=== PATIENT | female | born 1955 | race Caucasian/White ===

== ENCOUNTER 2019-09-21 07:55 | Day surgery (SDC) | payer OTHER ==
[~2019-09-21] VITALS: Ht 165.1 cm; Wt 81.7 kg
[~2019-09-21 07:55] MED LIST: LIPITOR10 MG PO; OMEPRAZOLE20 MG PO; SYNTHROID75 MCG PO
--- NOTE | 2019-09-21 08:52 | NUR ---
IMAGING CALLED AND VERBALIZED PATIENT READY FOR TRANSPORT. PATIENT RESTING BACK IN BED, WARM BLANKET PROVIDED. CALL LIGHT WITHIN REACH, NO OTHER NEEDS AT THIS TIME.
--- NOTE | 2019-09-21 08:53 | NUR ---
ULTRA SOUND NOT AVAILABLE TILL 1000, DR. VOGT AND ELBA VANG NOTIFIED.
--- NOTE | 2019-09-21 09:56 | NUR ---
PATIENT LEFT TO IMAGING IN WHEELCHAIR. PROVIDED WARM BLANKETS.
--- NOTE | 2019-09-21 13:53 | NUR ---
09/21/19 1353 Sheets,Minda 1347 PT ARRIVED TO PACU ON 6L VIA MASK, RESP EVEN AND UNLABORED. VSS.
[2019-09-21] MEDS ORDERED: IBUPROFEN600 MG PO (14:31)
[2019-09-21] MEDS ORDERED: OXYCODON-ACETA1 EAC2 PO (14:31)
[2019-09-21] MEDS ORDERED: TYLENOL EXTRA500 MG PO (14:32)
--- NOTE | 2019-09-21 14:45 | NUR ---
PATIENT BACK TO ROOM FROM RECOVERY, BEDSIDE REPORT FROM GOMEZ VANG. PATIENT RATING PAIN 8-10/10 STATES " THIS HURTS SO BAD" APPEARS TO BE GRIMACING. DISCUSSED PAIN CONTROL WITH NURSE. MEDICATED PER PACU ORDER FOR BREAKTHRU PAIN WITH PACU NURSE AT BEDSIDE. PATIENT TOLERATED WATER AND CRACKERS. ADMINISTER PO MEDICATION. PATIENT NOW CONVERSING WITH FAMILY, NO NEW DRAINAGE TO DRESSING.
--- NOTE | 2019-09-21 15:01 | NUR ---
PATIENT RATING PAIN 10/10 FROM PACU, DISCUSSED WITH NURSE OPTIONS FOR BREAKTHRU PAIN. PACU NURSE GOMEZ MEDICATED. PATIENT TOLERATING WATER AND CRACKERS. DRESSING SMALL AMOUNT OF SHADOWING.
--- NOTE | 2019-09-21 15:30 | NUR ---
PATIENT COMPLAINING OF HEARTBURN, VERBAL ORDER FROM DR. VOGT TO [facility]. PATIENT STATES " MY PAIN IS IMPROVIING." PROVIDED MORE ICE WATER. PROVIDED WARM BLANKETS. CALL LIGHT WITHIN REACH. FAMILY AT BEDSIDE.
--- NOTE | 2019-09-21 16:30 | NUR ---
PATIENT UP TO BATHROOM, PAIN WELL CONTROLLED. INNA BREAST SUPPORT PLACED ON PATINET. DRESSING INTACT, NO NEW DRAINAGE. AMBULATED TO BATHROOM STEADY ON FEET. PATIENT VOIDED 600 ML OF URINE. PATIENT STATES " I WOULD LIKE TO GO HOME". PROVIDED DISCHARGE EDUCATION.
--- NOTE | 2019-09-21 17:10 | NUR ---
PROVIDED PATIENT WITH WC RIDE TO FRONT. TRANSFERED WELL INTO CARE. DAUGHTER DRIVING PATIENT HOME.
--- NOTE | 2019-09-24 08:26 | OR ---
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 POSTOPERATIVE DIAGNOSES: 1. 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 2. Right axillary lymph node negative for metastatic disease (frozen pathology). PROCEDURES: 1. Injection of methylene blue dye for sentinel lymph node identification, right breast. 2. Right axillary sentinel lymph node biopsy. 3. Right partial mastectomy (right upper outer quadrant quadrantectomy). 4. Oncoplastic closure of wound defect including pedicle advancement and excision of redundant skin. PRINTING AGENT: Nurse. ANESTHESIA: General endotracheal; Mariajose Ku CRNA and Mariajose Valle CRNA. INDICATION: This 63-year-old white woman is a patient of Hannah Jacobson PA-C of [place], [place]. She underwent a mammogram. She is found to have an upper outer quadrant abnormality, for which image-guided biopsy was performed confirming infiltrating ductal carcinoma and probable associated ductal carcinoma in situ. She was referred for further evaluation and care and was noted to have ecchymosis and possible hematoma in the site of biopsy and therefore at the time of my evaluation, it was quite unclear whether she had a palpable lesion to begin with as her breast examination initially was not documented or of possible even done. In the meantime, she was identified to have at least two family members (aunts) with breast cancer and therefore BRCA testing was performed, which was negative. 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 I have reviewed in detail her options of management including mastectomy or breast conservation therapy regarding this breast cancer. As regard to the idea of bilateral mastectomy, cancer risk and the risk is not nearly as significantly high as BRCA positivity and she is not compelled nor encouraged by me at least to undergo bilateral mastectomy. She does opt for breast conservation therapy to include resection with negative margins, sentinel lymph node biopsy, possible axillary dissection, and subsequent radiation therapy and other indicated procedures depending on her pathologic findings. She and her family and other family members understand the risks of bleeding, infection, cosmetic deformity, need for additional treatment, possibility of positive margins requiring additional excision and other unforeseen complications. Understanding this, they wished to proceed. FINDINGS: The uptake of radionuclide to axilla showed a dominant lymph node. Methylene blue injection showed only faint uptake. There is only one dominant sentinel lymph node that was excised and found on frozen pathology to be negative for malignancy. Interrogation of the axilla clinically visually and with a gamma probe showed no other sentinel lymph node. The index lesion was definitely palpable and needle localization was not required as noted in the radiology suite today. It was larger than I had expected and in the upper outer quadrant. An incision was made directly over that lesion and a wide resection was undertaken, which extended down to the pectoralis muscle. A clinically negative margin was maintained throughout the size of the excision. Ultimately, it was closer to a quadrantectomy than actual lumpectomy proper. On that basis, oncoplastic closure techniques were used to remove the central breast pedicle laterally allowing for reconstruction of the defect without significant adverse cosmetic result. Redundant skin was excised to further accommodate a clinically improved cosmetic outcome. Frozen pathology of the sentinel lymph node showed it to be negative. DESCRIPTION OF PROCEDURE: The patient was brought to the operating room, given a general endotracheal anesthetic. Preoperative antibiotic clindamycin was given based on her allergy profile. Sequential compression device stockings used and heparin subcutaneously administered. The right breast and axilla were prepared with chlorhexidine solution and draped sterilely after injection of 1 mL of methylene blue dye in the subepithelial space in the upper outer aspect of the periareolar margin. Electronically Signed By: MARIAJOSE VOGT MD 09/24/19 0826 PATIENT NAME: AMANUEL GLEZ OPERATIVE REPORT DATE OF : 57 REPORT #: [id number] PHYSICIAN: MARIAJOSE VOGT MD PCP: OTHER PCP REPORT IS CONFIDENTIAL AND NOT TO BE RELEASED WITHOUT AUTHORIZATION [address] [address] Signed Once sterilely draped, the right axilla was interrogated with a C-Trak gamma probe and the area of maximal uptake was identified. A transverse incision was made, which was remained small and dissection carried through the dermis and subcutaneous space and ultimately to the axillary fat with blunt and electrocautery dissection. Using the gamma probe as a guide, ultimately an area consistent with fatty tissue surrounding sentinel lymph node was identified. This was meticulously dissected free and a few clips were applied to lymphatic and vascular pedicles as necessary. Tissue was excised and found to have marked uptake of radionuclide and marginal uptake of the dye itself. It was marked with a suture and passed for pathology, subsequently found to be negative for malignancy. Additional evaluation of the axilla showed absolutely no other palpable suspicious lymph node. No radionuclide activity and no methylene blue dye uptake to any other lymph node tissue. On that basis, the wound was packed with gauze and attention turned to the primary lesion. Consideration was made for a periareolar incision, but given the location of the mass in the upper outer quadrant, incision directly over it was deemed more advisable. This was accomplished with a #15 blade and dissection carried through the dermis sharply and electrocautery to elevate flaps medially and laterally. The palpable abnormality was quite firm and thick and quite a bit larger than I expected initially. Wide resection was undertaken medially essentially to the areolar margin where blue dye was encountered superiorly, inferiorly, laterally, most widely and deep. Deep excision was taken down to the pectoralis muscle. Palpation and mind fullness of the location of the dominant lesion were maintained throughout the excision. Once completely excised, the specimen was oriented with sutures for the pathologist's purposes. Palpation within the space showed dissection had gone to below the areolar margin and medially nearly to the midline. Lateral tissue was palpably normal. A sizable defect was enough that an oncoplastic closure technique would be necessary. On that basis, the breast pedicle in the central portion of the breast was freed from the underlying pectoralis fascia and shifted laterally. Redundant lateral breast tissue was easily elevated and rotated medially. The parenchyma was reapproximated with interrupted 2-0 Vicryl suture taking care to reconstruct the contour of the breast as optimally as possible. Redundant skin was excised in a half-farfan configuration laterally. Dimples of retention sutures were freed with sharp dissection allowing for much improved filling of the cosmetic defect laterally. Deep dermal layer was reapproximated with interrupted 2-0 Vicryl additionally and the skin closed with running subcuticular 3-0 Vicryl. By this point, the frozen pathology report of the sentinel lymph node was noted to be negative. Inspection of the right axillary wound showed no sign of bleeding or other problems. This wound was closed in layers of interrupted 2-0 Vicryl in deep layer and running subcuticular 3-0 Vicryl for the skin. Electronically Signed By: MARIAJOSE VOGT MD 09/24/19 0826 PATIENT NAME: AMANUEL GLEZ OPERATIVE REPORT DATE OF : 57 REPORT #: [id number] PHYSICIAN: MARIAJOSE VOGT MD PCP: OTHER PCP REPORT IS CONFIDENTIAL AND NOT TO BE RELEASED WITHOUT AUTHORIZATION [facility] [address] [place] [id number] Signed A skin lesion was noted in the medial aspect of the right breast, which was large and elliptical excision undertaken. It was a papillary red hemangioma like lesion of uncertain biologic behavior. Excision size was 2 cm. The wound was closed with a running subcuticular of 3-0 Vicryl. Steri-Strips were applied to all wounds. Silver sponge dressings were applied to each incision site as well. The patient was ultimately extubated and transferred to recovery room in good condition having suffered no complication. Aggregate blood loss would be considered 50 mL or less. Mariajose Vogt MD JM/MODL /[id number] cc: DANITZA Richards MD Copies: RUTH CARNEY MD ~ Electronically Signed By: MARIAJOSE VOGT MD 09/24/19 0826 PATIENT NAME: AMANUEL GLEZ OPERATIVE REPORT DATE OF : 57 REPORT #: [id number] PHYSICIAN: MARIAJOSE VOGT MD PCP: OTHER PCP REPORT IS CONFIDENTIAL AND NOT TO BE RELEASED WITHOUT AUTHORIZATION
--- NOTE | 2019-09-24 08:26 | OR ---
[facility] [address] [place], [place] [address] Signed DATE OF OPERATION: 09/21/2019 SURGEON: Mariajose Vogt MD PREOPERATIVE DIAGNOSES: 1. Upper outer quadrant infiltrating ductal breast carcinoma. 2. 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 POSTOPERATIVE DIAGNOSES: 1. Upper outer quadrant infiltrating ductal breast carcinoma. 2. 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 3. [place] lymph node negative on frozen pathology. PROCEDURES: 1. Injection of methylene blue for sentinel lymph node identification. 2. Right axillary deep sentinel lymph node biopsy. 3. Right partial mastectomy (upper outer quadrant quadrantectomy essentially). 4. Oncoplastic closure of wound defect including tissue pedicle mobilization, multilayered pedicle closure, and redundant skin excision. ANESTHESIA: General endotracheal. 1. Mariajose Ku CRNA. 2. Mariajose Valle CRNA. INDICATION: This 63-year-old white woman is a patient of LISA Richards of [place], [place]. She is found to have an abnormal mammogram in the right upper aspect, underwent core biopsy under image guidance by Dr. Dillon. She did have a fair amount of ecchymosis and possibly hematoma upon visiting in and was uncertain if this was a palpable lesion or not. The pathology report did confirm infiltrating ductal carcinoma with some component of ductal carcinoma in situ. She had no symptoms of bleeding, nipple discharge, or breast pain. She does have family history of breast cancer in at least one and possibly two paternal aunts and a sister and cousin both of a cancer of uncertain type. She was noted to have had axillary lymph nodes [place] [address] Demarcus Lezama for considered benign and on the left side. She did undergo BRCA testing, which was negative for BRCA1 and BRCA2. However, incidental testing of genetic abnormality of JANINA was heterozygous positive. Electronically Signed By: MARIAJOSE VOGT MD 09/24/19 0826 PATIENT NAME: AMANUEL GLEZ OPERATIVE REPORT DATE OF : 57 REPORT #: [id number] PHYSICIAN: MARIJAOSE VOGT MD PCP: OTHER PCP REPORT IS CONFIDENTIAL AND NOT TO BE RELEASED WITHOUT AUTHORIZATION [address] [address] Signed I have conferred with the patient in detail DICTATION ENDS HERE MD JANIE Zhang/MODL /[id number] Copies: ~ Electronically Signed By: MARIAJOSE VOGT MD 09/24/19 0826 PATIENT NAME: AMANUEL GLEZ OPERATIVE REPORT DATE OF : 57 REPORT #: [id number] PHYSICIAN: MARIAJOSE VOGT MD PCP: OTHER PCP REPORT IS CONFIDENTIAL AND NOT TO BE RELEASED WITHOUT AUTHORIZATION
--- NOTE | 2019-10-02 17:04 | PATH ---
[facility] [address] [facility] [place], [place] [address] Signed SPECIMEN(S): A RIGHT BREAST SPECIMEN(S): B RIGHT BREAST SPECIMEN(S): C ADDITIONAL ONCOPLASTIC CLOSURE SPECIMEN(S): D RIGHT BREAST, MEDIAL 2 CM SPECIMEN SOURCE: A. RIGHT BREAST B. RIGHT BREAST C. ADDITIONAL ONCOPLASTIC CLOSURE D. RIGHT BREAST, MEDIAL 2 CM CLINICAL HISTORY: Infiltrating duct carcinoma of breast. FROZEN SECTION DIAGNOSIS: A. Right sentinel lymph node #1: - No evidence of malignancy in inbound sales representative section frozen. Riccardo Boateng M.D. 09-21-2019. 12:48 p.m. Frozen section diagnoses called to Dr. Luciano at 12:48 PM. FINAL PATHOLOGIC DIAGNOSIS: A. Right axillary sentinel lymph node: - Negative for metastatic malignancy on HE and immunostained sections. B. Right breast, excision: - Infiltrating ductal carcinoma with the following features: - Specimen size: 7.9 x 8.6 x 3.7 cm. - Specimen integrity: Intact. - Site: Right upper out quadrant (10 o'clock). - Tumor size: 2.6 x 2.2 x 2.0 cm. - Histologic type: Invasive mammary carcinoma. - Histologic grade ([place] histologic score): - Tubule formation: 3 of 3. - Nuclear pleomorphism score: 2 of 3. - Mitotic rate: 1 of 3. - Total score: 6 of 9 = grade 2 of 3. - Associated in situ component: Present, low grade, not prominent, margin free. - Margins: Free of neoplasm. - Closest margin: 0.3 cm from anterior margin and 0.1 cm from posterior margin. - Lymphovascular invasion: Absent PATIENT NAME: AMANUEL GLEZ PATHOLOGY DATE OF : 57 REPORT #: [id number] PHYSICIAN: NATA PATHOLOGY PCP: OTHER PCP REPORT IS CONFIDENTIAL AND NOT TO BE RELEASED WITHOUT AUTHORIZATION [facility] [address] [place], [place] [address] Signed - Treatment effect: No known pre-surgical treatment. - AJCC: pT2 PN0 (sn) - Additional pathologic findings: - Focally dense lymphocytic infiltration around tumor cells. - Uninvolved breast with mild fibrocystic change with the feature of fibrosis and cyst formation. C. Additional skin from oncoplastic closure: - No microscopic pathologic diagnosis. D. Skin, right breast, biopsy: - Capillary hemangioma. COMMENT: B. The patient had a previous biopsy of the right breast received at [facility] 08/14/2019 with a diagnosis of invasive ductal carcinoma ([id number]). Ancillary studies were performed at that time with results as follows: Estrogen receptor by immunohistochemistry 100% positive with strong average intensity. Progesterone receptor by immunohistochemistry 100% positive with strong average intensity. Ki-67 proliferation Index: 25%. HER2 by immunohistochemistry: Negative. As part of [facility] quality control manager program this case has been reviewed by another member of our pathology staff. NENA:MALENA:cml:C1NR MICROSCOPIC EXAMINATION: A. Sections of right axillary sentinel lymph node are negative for metastatic malignancy on HE stained sections. Per protocol immunostain for CKAE1/AE3 is obtained along with an appropriately positive control on material from blocks A1 and A2 and is also negative for metastatic malignancy. B. Immunostains for synaptophysin and chromogranin are obtained along with appropriately positive controls. Immunostain for CK AE1/AE3 is obtained along with an appropriately positive control on A1 and A2, and is negative for the presence of metastatic carcinoma. Immunostain for CD34 is obtained along with an appropriately positive control on block B3 and is negative for the presence of lymphovascular invasion. Immunostains for synaptophysin and chromogranin are obtained along with appropriately positive controls on block B1. Both are negative. PATIENT NAME: AMANUEL GLEZ PATHOLOGY DATE OF : 57 REPORT #: [id number] PHYSICIAN: NATA URIBE PCP: OTHER PCP REPORT IS CONFIDENTIAL AND NOT TO BE RELEASED WITHOUT AUTHORIZATION [facility] [address] [place], [place] [address] Signed GROSS DESCRIPTION: Four specimens are received in four containers, labeled "." A. The specimen, labeled ", sentinel lymph node #1," is received fresh for frozen section diagnosis and consists of a 3.0 x 2.0 x 1.5 cm portion of yellow-gibbs adipose tissue with a sutured 1.2 x 0.7 x 0.6 cm lymph node. The lymph node is trisected and a portion is submitted for frozen section and resubmitted as received in cassette (A1). The remainder of the lymph node is submitted in cassette (A2). Only adipose tissue remains within the container. B. The specimen, labeled "JH," and designated on the requisition "right breast," is received in formalin and consists of a 102 gram oriented portion of yellow-gibbs fibroadipose tissue that is 7.9 x 8.6 x 3.7 cm. A short suture identifies the superior margin, a long suture identifies the lateral margin, and a double suture identifies the deep/posterior margin. The specimen is inked as follows: superior - blue; inferior - green; medial - red; lateral - orange; anterior - yellow; and posterior - black. The specimen is serially sectioned from medial to lateral into 13 slices, revealing a 2.6 x 2.2 x 2.0 cm white firm, ill-defined mass, present in slices 4-10. The mass is 0.3 cm from the anterior soft tissue margin, 0.1 cm from the posterior soft tissue margin, 2.7 cm from the superior soft tissue margin, 1.8 cm from the inferior soft tissue margin, 2.3 cm from the medial soft tissue margin, and 1.6 cm from the lateral soft tissue margin. Approximately 80% of the remaining specimen is a yellow-gibbs greasy adipose tissue and 20% is a white-gibbs rubbery fibrous tissue. Venue Attendant sections are submitted in seven cassettes. Cassette summary: (B1) mass to anterior soft tissue resection margin, perpendicular (B2) mass to posterior soft tissue margin, perpendicular (B3) mass to adjacent fibroadipose tissue (B4) inferior soft tissue margin, perpendicular (B5) superior soft tissue margin, perpendicular (B6) medial soft tissue margin, perpendicular (B7) lateral soft tissue margin, perpendicular. Cold ischemia time: Insufficient data to calculate. Approximate Formalin time: 48-72 hours. C. The specimen, labeled "JH," and designated on the requisition "additional skin from oncoplastic closure," is received in formalin and consists of a 6.6 x 1.4 x 0.9 cm, unoriented ellipse of skin PATIENT NAME: AMANUEL GLEZ PATHOLOGY DATE OF : 57 REPORT #: [id number] PHYSICIAN: NATA URIBE PCP: OTHER PCP REPORT IS CONFIDENTIAL AND NOT TO BE RELEASED WITHOUT AUTHORIZATION [facility] [address] [place], [place] [address] Signed with underlying fibroadipose tissue. The skin surface is pale pink with a slight blue dye discoloration. The specimen is inked, serially sectioned, and entirely submitted in (C1-C4). D. The specimen, labeled "JH," and designated on the requisition "right breast," is received in formalin and consists of a 1.4 x 0.7 x 0.2 cm, unoriented portion of skin. The skin surface is pale pink and smooth with an ill-defined brown papule that is 0.7 x 0.7 x 0.2 cm. The specimen is inked, sectioned and entirely submitted in cassette (D1). FB (under the direct supervision of a pathologist) The Gross Description was prepared using a voice recognition system. The report was reviewed for accuracy; however, sound-alike word errors, addition and/or deletions may occur. If there is any question about this report, please contact Client Services. ADDITIONAL NOTES: Immunohistochemical and/or in situ hybridization studies were performed on this case with the appropriate positive controls that react as expected. This test was developed and its performance characteristics determined by [facility]. It has not been cleared or approved by the U.S. Food and Drug Administration. The FDA has determined that such clearance or approval is not necessary. This test is used for clinical purposes. It should not be regarded as investigational or for research. [facility] is certified under the Clinical Laboratory Improvement Amendments of 1988 (CLIA) as qualified to perform high complexity clinical laboratory testing. PERFORMING LABORATORY: The frozen section was performed by [facility], [facility], [address] [address] (CLIA# [id number]). The technical component was performed by [facility], [address] [place] [address] [place] [address] (Poker Dealer: Paloma Domínguez MD; CLIA# [id number]). Diagnostician: Torrey Malcolm MD Pathologist Electronically Signed 10/02/2019 Copies: PATIENT NAME: AMANUEL GLEZ PATHOLOGY DATE OF : 57 REPORT #: [id number] PHYSICIAN: NATA PATHOLOGY PCP: OTHER PCP REPORT IS CONFIDENTIAL AND NOT TO BE RELEASED WITHOUT AUTHORIZATION [facility] [address] [place], [place] [address] Signed ~ PATIENT NAME: AMANUEL GLEZ PATHOLOGY DATE OF : 57 REPORT #: [id number] PHYSICIAN: ROSA ELENASonatype PATHOLOGY PCP: OTHER PCP REPORT IS CONFIDENTIAL AND NOT TO BE RELEASED WITHOUT AUTHORIZATION
== END 2019-09-21 17:10 | disposition home or self-care (01) ==
LOC: DS 07:55
PROVIDERS: Surgery
PROC: 0HBT0ZZ Excision of Right Breast, Open Approach (ICD-10-PCS; principal; 2019-09-21 12:00)
PROC: 07B50ZX Excision of Right Axillary Lymphatic, Open Approach, Diagnostic (ICD-10-PCS; 2019-09-21 12:00)
DX: C50.411 Malignant neoplasm of upper-outer quadrant of right female breast (principal); E78.5 Hyperlipidemia, unspecified; E03.9 Hypothyroidism, unspecified; K21.0 Gastro-esophageal reflux disease with esophagitis; Z80.3 Family history of malignant neoplasm of breast; Z88.0 Allergy status to penicillin; Z88.2 Allergy status to sulfonamides; Z79.899 Other long term (current) drug therapy
CPT/HCPCS: 00404; 76098; 76604; 76642; J0131; J1100; J1170; J1644; J1885; J2001; J2250; J2405; J2704; J3010; J7121; Q9968

== ENCOUNTER 2020-06-13 08:33 | Day surgery (SDC) | payer OTHER ==
[~2020-06-13] VITALS: Ht 165.1 cm; Wt 81.8 kg
[~2020-06-13 08:33] MED LIST changes: +IBUPROFEN600 MG PO; +OXYCODON-ACETA1 EAC2 PO; +TYLENOL EXTRA500 MG PO
[2020-06-13] MEDS ORDERED: ANASTROZOLE1 MG PO (08:53)
--- NOTE | 2020-06-13 10:44 | NUR ---
06/13/20 1043 Clemencia,Minda 1039 PT ARRIVED TO PACU ON 2L VIA NC, RESP EVEN AND UNLABORED. VSS. PT AWAKE AND TALKING TO RN. PT REORIENTED TO PACU AND DENIES NAUSEA AND PAIN. PT FALLS TO SLEEP EASILY.
--- NOTE | 2020-06-16 12:00 | PATH ---
[facility] [address] [place], [place] [address] Signed SPECIMEN(S): A DUODENUM SPECIMEN(S): B ANTRUM/PYLORUS SPECIMEN(S): C STOMACH POLYP SPECIMEN(S): D LOWER ESOPHAGUS SPECIMEN SOURCE: A. DUODENUM B. ANTRUM/PYLORUS C. STOMACH POLYP D. LOWER ESOPHAGUS CLINICAL HISTORY: Pre: GERD, dysphagia, colon surveillance. Post: Gastric polyp x 1/diverticulosis. MICROSCOPIC DESCRIPTION: Histologic sections of all submitted blocks are examined by light microscopy. These findings, together with the gross examination, support the pathologic diagnosis. FINAL PATHOLOGIC DIAGNOSIS: A. Duodenum, biopsy: - Duodenal mucosa with no histopathologic abnormality. - Negative for dysplasia or malignancy. B. Stomach, antrum/pylorus, biopsy: - Antral mucosa with mild chronic, inactive gastritis. - Negative for Helicobacter organisms on HE stain. - Negative for dysplasia or malignancy. C. Stomach, polyp, polypectomy: - Fundic gland polyp. - Negative for dysplasia or malignancy. D. Esophagus, lower, biopsy: - Squamous mucosa with minimal chronic inflammation and reactive changes, suggestive of reflux esophagitis. - Negative for intestinal metaplasia, dysplasia, or malignancy. NAL:cml:C2NR GROSS DESCRIPTION: Four specimens are received in four containers, labeled "JH." A. The specimen, labeled "JH, duodenum biopsy," is received in formalin and consists of one gibbs soft tissue fragment that measures 0.2 cm in greatest dimension. The specimen is entirely submitted in PATIENT NAME: AMANUEL GLEZ PATHOLOGY DATE OF : 57 REPORT #: [id number] PHYSICIAN: TANNER URIBE PCP: DIMAS NORTH PA-C REPORT IS CONFIDENTIAL AND NOT TO BE RELEASED WITHOUT AUTHORIZATION [facility] [address] [place], [place] [address] Signed cassette (A1). B. The specimen, labeled "JH, antrum biopsy," is received in formalin and consists of one gibbs soft tissue fragment that measures 0.2 cm in greatest dimension. The specimen is entirely submitted in cassette (B1). C. The specimen, labeled "JH, stomach polyp," is received in formalin and consists of one gibbs soft tissue fragment that measures 0.2 cm in greatest dimension. The specimen is entirely submitted in cassette (C1). D. The specimen, labeled "JH, lower esophagus biopsy," is received in formalin and consists of one gibbs soft tissue fragment that measures 0.1 cm in greatest dimension. The specimen is entirely submitted in cassette (D1). JS (under the direct supervision of a pathologist) The Gross Description was prepared using a voice recognition system. The report was reviewed for accuracy; however, sound-alike word errors, addition and/or deletions may occur. If there is any question about this report, please contact Client Services. PERFORMING LABORATORY: The technical component was performed by [employer], [address] [place] [id number] (Manufacturing Engineering Manager: Paloma Domínguez MD; CLIA# [id number]). [facility], [address] [address] (CLIA# [id number]). Diagnostician: Evette Boateng MD Pathologist Electronically Signed 06/16/2020 Copies: ~ PATIENT NAME: AMARISAMANUELLuann AVILEZ PATHOLOGY DATE OF : 57 REPORT #: [id number] PHYSICIAN: TANNER PATHOLOGY PCP: DIMAS NORTH PA-C REPORT IS CONFIDENTIAL AND NOT TO BE RELEASED WITHOUT AUTHORIZATION
--- NOTE | 2020-06-16 15:17 | OR ---
[facility] [address] [place], [place] [address] Signed DATE OF OPERATION: 06/13/2020 SURGEON: Mariajose Vogt MD PREOPERATIVE DIAGNOSES: 1. Gastroesophageal reflux symptoms. 2. Surveillance colonoscopy. POSTOPERATIVE DIAGNOSES: 1. Normal-appearing flap valve and no evidence of esophagitis. 2. Small polyp of stomach. 3. Diverticulosis of colon. PROCEDURE: 1. Esophagogastroduodenoscopy with biopsy. 2. Total colonoscopy to cecum. ANESTHESIA: Intravenous sedation, fentanyl 150 mcg and Versed 5 mg. INDICATION: This 64-year-old white woman is known to me from the past having undergone breast cancer treatment in September of this year. She has stage I disease. She additionally wishes to have surveillance colonoscopy and also complains of gastroesophageal reflux problems. Her symptoms are unchanged currently and not too bad and well controlled with Prilosec. She has no dysphagia or hematemesis. She is admitted at this time to undergo surveillance colonoscopy as well as upper endoscopy. Notably, she has no family history of colon cancer. FINDINGS: Upper endoscopy demonstrated a normal appearing esophagus in every way. The flap valve was good as well. She did have a one small polyp of the antrum of the stomach, which was excised. The remaining exam was normal. On colonoscopy, the prep was good. Complete colonoscopy was undertaken of the cecum without question. She had numerous diverticula of the sigmoid colon, but no sign of polyps or colitis. DESCRIPTION OF PROCEDURE: The patient was brought to the endoscopy suite, given topical Hurricaine spray Electronically Signed By: MARIAJOSE VOGT MD 06/16/20 1517 PATIENT NAME: AMANUEL GLEZ OPERATIVE REPORT DATE OF : 57 REPORT #: [id number] PHYSICIAN: MARIAJOSE VOGT MD PCP: DIMAS NORTH PA-C REPORT IS CONFIDENTIAL AND NOT TO BE RELEASED WITHOUT AUTHORIZATION [facility] [address] [place], [place] [address] Signed hypopharyngeal anesthesia and placed in lateral decubitus position. She was given intravenous sedation to the point of slurred speech and nystagmus with full cardiopulmonary monitoring. A bite block was placed. The Olympus video upper endoscope was passed in the hypopharynx, the vocal cords were normal. Scope was advanced to the stomach without problem showing a normal esophagus. Stomach was entered and rugal folds appeared normal as did the antrum. The pylorus was normal and scope was passed through into the duodenum, which was also normal. Biopsies were taken of the duodenum. The scope was withdrawn and a small gastric polyp was noted, this was excised. Antral biopsies were obtained to assess gastritis or H. pylori. Retroflexed view was undertaken showing normal gastric mucosa. The flap valve was quite optimal. The scope was straightened, withdrawn, and distal esophageal mucosa was found to be entirely normal. Biopsies were taken nevertheless. The scope was further withdrawn and there were no other findings of concern. Plans were then made for colonoscopy. Digital rectal examination was normal. An Olympus video colonoscope was passed in the rectum and manipulated throughout the colon ultimately intubating the cecum itself. The ileocecal valve and appendiceal orifice were normal. The scope was withdrawn from that point. Examination throughout showed no sign of abnormality other than diverticular changes of the sigmoid and left colon, retroflexed view of the rectum was normal. The scope was removed and the patient was taken to the recovery room in good condition. CONCLUDING DIAGNOSIS: 1. Diverticulosis of colon. 2. No evidence of esophagitis or hiatal hernia in any way; small gastric polyp of little concern. PLAN: Though she is taking PPI medication, she could reliably change to Pepcid, H2 anselmo 20 mg b.i.d. if she so chooses. We would recommend a repeat colonoscopy in 10 years sooner if symptoms should occur colon cancer history. She will return to the ongoing care of LISA Richards. MD JANIE Zhang/MODL Electronically Signed By: MARIAJOSE VOGT MD 06/16/20 1517 PATIENT NAME: AMANUEL GLEZ OPERATIVE REPORT DATE OF : 57 REPORT #: [id number] PHYSICIAN: MARIAJOSE VOGT MD PCP: DIMAS NORTH PA-C REPORT IS CONFIDENTIAL AND NOT TO BE RELEASED WITHOUT AUTHORIZATION [address] [address] Signed /[id number] cc: LISA Richards Copies: ~ Electronically Signed By: MARIAJOSE VOGT MD 06/16/20 1517 PATIENT NAME: AMANUEL GLEZ OPERATIVE REPORT DATE OF : 57 REPORT #: [id number] PHYSICIAN: MARIAJOSE VOGT MD PCP: DIMAS NORTH PA-C REPORT IS CONFIDENTIAL AND NOT TO BE RELEASED WITHOUT AUTHORIZATION
== END 2020-06-13 11:39 | disposition home or self-care (01) ==
LOC: OPS 08:33 → DS 08:33 → OPS 09:30 → DS 09:30 → OPS 11:39
PROVIDERS: ATTEND Surgery
PROC: 0DB78ZX Excision of Stomach, Pylorus, Via Natural or Artificial Opening Endoscopic, Diagnostic (ICD-10-PCS; 2020-06-13)
PROC: 0DB68ZX Excision of Stomach, Via Natural or Artificial Opening Endoscopic, Diagnostic (ICD-10-PCS; 2020-06-13)
PROC: 0DB38ZX Excision of Lower Esophagus, Via Natural or Artificial Opening Endoscopic, Diagnostic (ICD-10-PCS; 2020-06-13)
PROC: 0DJD8ZZ Inspection of Lower Intestinal Tract, Via Natural or Artificial Opening Endoscopic (ICD-10-PCS; principal; 2020-06-13 09:30)
PROC: 0DB98ZX Excision of Duodenum, Via Natural or Artificial Opening Endoscopic, Diagnostic (ICD-10-PCS; 2020-06-13 09:30)
DX: K21.00 Gastro-esophageal reflux disease with esophagitis, without bleeding (principal); K57.30 Diverticulosis of large intestine without perforation or abscess without bleeding; K31.7 Polyp of stomach and duodenum; E03.9 Hypothyroidism, unspecified; E78.5 Hyperlipidemia, unspecified; C50.411 Malignant neoplasm of upper-outer quadrant of right female breast; Z88.2 Allergy status to sulfonamides; Z88.0 Allergy status to penicillin; Z79.899 Other long term (current) drug therapy; Z79.1 Long term (current) use of non-steroidal anti-inflammatories (NSAID); Z90.11 Acquired absence of right breast and nipple; Z79.890 Hormone replacement therapy; Z17.0 Estrogen receptor positive status [ER+]
CPT/HCPCS: 99153; G0500; J2250; J3010; J7121

== ENCOUNTER 2023-01-27 07:35 | Day surgery (SDC) | payer OTHER ==
[~2023-01-27] VITALS: Ht 165.1 cm; Wt 84.1 kg
[~2023-01-27 07:35] MED LIST changes: +ACETAMINOPHEN500 MG PO; +ANASTROZOLE1 MG PO; +MOTRIN IB200 MG PO; +VITAMIN D210 MCG PO; +ZITHROMAX250 MG PO
[2023-01-27 08:23] VITALS: BP 120/71
[2023-01-27] MEDS ORDERED: PERCOCET 10-321 EACH PO (08:23)
--- NOTE | 2023-01-27 11:03 | NUR ---
PT ALERT, ORIENTED AND SUPPORTED BY FAMILY. PT REQUESTED ANOTHER WARM BLANKET-CIERA IRENE PROVIDED. GAVE ENCOURAGEMENT, FAMILY WILL REMAING FOR DC. PT REQUESTED PRAYER, WILL FOLLOW
--- NOTE | 2023-01-27 11:37 | NUR ---
01/27/23 1137 Kristie Saxena 1132-PATIENT ARRIVED TO PACU ON 6L MASK RR EVEN. PATIENT NONAROUSABLE. SR. IVF INFUSING. INCISION SITE TO LEFT AXILLARY CDI MAY DRAIN SANGUINOUS DRAINAGE.
[2023-01-27] MEDS ORDERED: DILAUDID2 MG PO (11:49)
[2023-01-27] MEDS ORDERED: ONDANSETRON ODT8 MG PO (11:50)
[2023-01-27 12:20] VITALS: BP 128/77
--- NOTE | 2023-01-27 12:54 | NUR ---
1220: PATIENT BACK IN DAY SURGERY ROOM FROM PACU. PATIENT C/O NAUSEA. KEEPING EYES CLOSED. C/O PAIN. UNABLE TO GIVE PAIN A NUMBER AT THIS TIME. REQUESTS PAIN MEDICATION. VS CHECKED. LEFT AXILLA DRESSING CDI. MAY DRESSING CDI. IV SITE WNL. 1230: DR. VOGT INFORMED OF PATIENT'S NAUSEA AND PAIN. NEW ORDER RECEIVED FOR OFIRMEV IV. 1240: OFIRMEV IV STARTED. SON AT BEDSIDE. PATIENT CONTINUES TO REST WITH EYES CLOSED DUE TO NAUSEA AND PAIN. CALL LIGHT WITHIN REACH.
[2023-01-27 13:20] VITALS: BP 125/65
--- NOTE | 2023-01-27 13:31 | NUR ---
PATIENT LAYING IN BED AWAKE. RESP EVEN AND UNLABORED. WHEN ASKED ABOUT PAIN USING THE PAIN SCALE PATIENT STATES "I'M NOT GOOD AT THAT". SHE WOULD LIKE SOMETHING FOR PAIN. PATIENT EATING CRACKERES. NAUSEA IS STILL PRESENT BUT A LITTLE BETTER. DRESSING CLEAN, DRY, AND INTACT. FAMILY IN ROOM. CALL LIGHT WITHIN REACH. IF TOLERATES CRACKERS WILL GIVE PO PAIN MEDICATION.
--- NOTE | 2023-01-27 13:53 | NUR ---
LE 1337-PATIENT TOLERATED CRACKERS AND WATER. PAIN MEDICATION GIVEN PER EMAR.
[2023-01-27 14:26] VITALS: BP 108/61
--- NOTE | 2023-01-27 14:45 | NUR ---
LE 1420 PATIENT ALERT AND ORIENTED. BREATHING EQUAL AND UNLABORED. OXYGEN SATURATIONS ABOVE 90% ON ROOM AIR. PATIENT STATES PAIN IS A 6/10 BUT TOLERABLE DENIES WANTING MORE PAIN MEDICINE AT THIS TIME. PATIENT IS NAUSEATED BUT STATES IT IS IMPROVING. PATIENT SURGICAL DRESSING CLEAN, DRY AND INTACT. MAY DRAINING SEROUSANIGENOUS. PATIENT UP TO THE RESTROOM VOIDED CLEAR AND YELLOW URINE. SCD'S ON. CALL LIGHT WITHIN REACH NO FUTHER NEEDS. NO QUESTIONS AT THIS TIME.
--- NOTE | 2023-01-27 15:46 | NUR ---
1445: PATIENT DRESSED. DISCHARGE INSTRUCTIONS GIVEN TO PATIENT AND DAUGHTER. IV DC'D WNL. TIP INTACT. DRESSING APPLIED. 1455: PATIENT C/O NAUSEA WORSENING AND BECOMING DIAPHORETIC. PATIENT ENCOURAGED TO LAY DOWN IN BED. PATIENT AGREED. COOL AIR BLOWING ON PATIENT. COOL WASH CLOTH PLACED ON FOREHEAD. CALL LIGHT WITHIN REACH. 1505: PATIENT STATES FEELING BETTER. WILL CONTINUE TO REST FOR A BIT. 1515: PATIENT CONTINUES TO FEEL BETTER. NAUSEA STILL THERE, BUT LESS THAN BEFORE. PATIENT WOULD LIKE TO GO HOME. 1520: PATIENT TRANSFERRED TO WHEELCHAIR. DISCHARGED TO HOME VIA WHEELCHAIR WITH SON AND DAUGHTER.
--- NOTE | 2023-01-30 14:55 | OR ---
[facility] [address] [place], [place] [address] Signed DATE OF OPERATION: 01/27/2023 SURGEON: Mariajose Vogt MD PREOPERATIVE DIAGNOSES: 1. Left infiltrating ductal breast carcinoma, status post left total mastectomy with sentinel lymph node biopsy. 2. Positive sentinel lymph node biopsy (1.6 cm in size with extracapsular extension. POSTOPERATIVE DIAGNOSES: 1. Left infiltrating ductal breast carcinoma, status post left total mastectomy with sentinel lymph node biopsy. 2. Positive sentinel lymph node biopsy (1.6 cm in size with extracapsular extension. PROCEDURE: Left axillary dissection (completion dissection). ANESTHESIA: General LMA, Nelson Eugene CRNA and local 10 mL of 0.25% Marcaine with epinephrine. INDICATION: This 67-year-old white woman is a patient of LISA Richards and underwent bilateral mastectomy with left sentinel lymph node biopsy on January 13, 2023. She has since had all of her drains removed. Final pathology report confirmed left infiltrating ductal breast carcinoma 29 mm in size with ductal carcinoma in situ was present as well. A single regional sentinel lymph node that was excised was 1.6 cm in size with extranodal extension of neoplasm. No other lymph node tissue was identified. Notably that was the only lymph node, it was considered to be sentinel at that time. Given the size of the node and tumor burden and extracapsular extension, I recommended completion axillary dissection. The risk of bleeding, infection, nerve injury, arm swelling, and other unforeseen complications was reviewed in detail with her. She understands and wished to proceed. FINDINGS: Left mastectomy wound was healing well. There was some redundant skin in the medial aspect that was left in situ as edema and so forth has not completely resolved. A separate incision for the axilla was appropriate and was used. There was some ceruminous fluid within the mastectomy wound site, but not too much. As expected, the inflammatory changes related to recent sentinel lymph node biopsy were noted but overcome with diligence and careful dissection. Ultimately, a generous amount of Electronically Signed By: MARIAJOSE VOGT MD 01/30/23 1455 PATIENT NAME: AMANUEL GLEZ OPERATIVE REPORT DATE OF : 57 REPORT #: [id number] PHYSICIAN: MARIAJOSE VOGT MD PCP: DIMAS NORTH PA-C REPORT IS CONFIDENTIAL AND NOT TO BE RELEASED WITHOUT AUTHORIZATION [facility] [address] [place], [place] [address] Signed axillary lymph tissue was excised, considered likely level three lymphadenectomy. The long thoracic nerve and the thoracodorsal neurovascular complex were identified and preserved. Several small intercostal brachial nerves were divided to provide adequate resection. The axillary vein was identified and well preserved. There were no complications. PROCEDURE IN DETAIL: The patient was brought to the operating room, given a general endotracheal anesthetic. The Steri-Strips over the left mastectomy site were removed and the left chest wall and axilla prepared with a chlorhexidine solution and draped sterilely. Preoperative antibiotic was given and sequential compression device stockings used and heparin subcutaneously administered. Firmness of the mastectomy site deemed an incision a bit higher in the axilla more appropriate. A transverse incision was made in the low axilla. Dissection carried through the subcutaneous tissue. There was secondary inflammation from previous dissection in the area, but the axillary fat pad was encountered ultimately. The capsule from the mastectomy site was interrupted and serous fluid was withdrawn only 100 mL or so in total. Using sharp and blunt dissection, the axillary fat pad was dissected free more fully. Previous dissection had resulted in scar tissue in the axilla as with the excised fixed expected. The lateral aspect of the pectoralis muscle was sharply dissected free and ultimately the axillary vein identified and ultimately the long thoracic and thoracodorsal neurovascular bundles as well. The fatty tissue including the lymph nodes of the axilla was excised in continuity. Dissection was carried to the apex of the axilla and clips were used to jessa the upper most extent of dissection. There were several firm lymph nodes within the axillary contents, not previously noted on sentinel lymph node dissection previously. None of the nose had residual of blue dye. Clips were used as necessary for dissection and preservation of the nerves and axillary vein certainly well accomplished. The axillary contents were passed for permanent pathology. Irrigation was undertaken with sterile water. Minimal cautery was required for hemostasis. Some Dai hemostatic powder was insufflated into the axillary area. Through a separate stab incision, a 7 mm flat Erasto drain was placed into the axilla, trimmed to appropriate length. It was secured to the skin with a nylon suture. The wound was then closed with interrupted 2-0 Vicryl and deeper layer and running subcuticular 3-0 Vicryl for the skin. Steri-Strips were applied as was an Acticoat dressing. She was ultimately extubated and transferred to the recovery room in good condition having suffered no complication. Blood loss was less than 25 mL in aggregate. Mariajose Vogt MD Electronically Signed By: MARIAJOSE VOGT MD 01/30/23 1455 PATIENT NAME: AMANUEL GLEZ OPERATIVE REPORT DATE OF : 57 REPORT #: [id number] PHYSICIAN: MARIAJOSE VOGT MD PCP: DIMAS NORTH PA-C REPORT IS CONFIDENTIAL AND NOT TO BE RELEASED WITHOUT AUTHORIZATION [address] [place] [address] Signed /FARNAZ /[id number] cc: MD Mauro Montano MD, PH.D. LISA Richards Copies: BRENDA MARTINEZ MD, JUNO ~ Electronically Signed By: MARIAJOSE VOGT MD 01/30/23 1455 PATIENT NAME: AMANUEL GLEZ OPERATIVE REPORT DATE OF : 57 REPORT #: [id number] PHYSICIAN: MARIAJOSE VOGT MD PCP: DIMAS NORTH PA-C REPORT IS CONFIDENTIAL AND NOT TO BE RELEASED WITHOUT AUTHORIZATION
--- NOTE | 2023-01-31 16:22 | PATH ---
[facility] [address] [place], [place] [address] Signed SPECIMEN(S): A LEFT AXILLARY CONTENTS SPECIMEN SOURCE: A. LEFT AXILLARY CONTENTS CLINICAL HISTORY: Left axillary dissection. Left breast infiltrating ductal carcinoma with metastatic lymph node (1.6 cm). Note: Bilateral mastectomy with left sentinel node biopsy performed 01/13/2023. FINAL PATHOLOGIC DIAGNOSIS: Left axillary contents: - One of ten lymph nodes positive for metastatic carcinoma (1/10). - Number of lymph nodes examined: 10. - Number of sentinel lymph nodes examined: 0. - Number of lymph nodes positive for metastatic carcinoma: 1. - Size of largest tumor deposit: 12 mm. - Extracapsular extension: Not identified. COMMENT: As part of [employer]' Quality Improvement Program, this case was reviewed by another member of our pathology staff. JVR:DS:[facility]:C1NR MICROSCOPIC EXAMINATION: Histologic sections of all submitted blocks are examined by light microscopy. These findings, together with the gross examination, support the pathologic diagnosis. GROSS DESCRIPTION: The specimen, labeled and designated "Shanell, left axillary contents," is received in formalin and consists of several pieces of fibroadipose tissue that aggregate measures 10.0 x 7.5 x 2.5 cm. Sectioning through the specimen reveals seventeen pink-gibbs possible lymph nodes that range in size from 0.3 to 2.5 cm in greatest dimension. Lymph nodes are entirely submitted. Cassette Summary: (A1) Seven possible lymph nodes, entirely submitted (A2) Two possible lymph nodes, bisected, one inked (A3) Two possible lymph nodes, bisected, one inked (A4) Two possible lymph nodes, bisected, one inked PATIENT NAME: AMANUEL GLEZ PATHOLOGY DATE OF : 57 REPORT #: [id number] PHYSICIAN: TANNER URIBE PCP: DIMAS NORTH PA-C REPORT IS CONFIDENTIAL AND NOT TO BE RELEASED WITHOUT AUTHORIZATION [facility] [address] [place], [place] [address] Signed (A5) One possible lymph node, bisected (A6) One possible lymph node, bisected (A7) One possible lymph node, bisected (A8-A9) One possible lymph node, sectioned, entirely submitted JS (under the direct supervision of a pathologist) The Gross Description was prepared using a voice recognition system. The report was reviewed for accuracy; however, sound-alike word errors, addition and/or deletions may occur. If there is any question about this report, please contact Client Services. PERFORMING LABORATORY: The technical component was performed by [employer], [address] [place] [address] (CLIA# [id number]). Professional interpretation was performed by [employer] Pathology - [facility], [address] [place] [phone] (CLIA#: [id number]). Diagnostician: Henry Rapp MD Pathologist Electronically Signed 01/31/2023 Copies: ~ PATIENT NAME: AMANUEL GLEZ PATHOLOGY DATE OF : 57 REPORT #: [id number] PHYSICIAN: TANNER URIBE PCP: DIMAS NORTH PA-C REPORT IS CONFIDENTIAL AND NOT TO BE RELEASED WITHOUT AUTHORIZATION
== END 2023-01-27 15:20 | disposition home or self-care (01) ==
LOC: DS 07:35
PROVIDERS: ATTEND Surgery
PROC: 07T60ZZ Resection of Left Axillary Lymphatic, Open Approach (ICD-10-PCS; principal; 2023-01-27 09:45)
DX: C77.3 Secondary and unspecified malignant neoplasm of axilla and upper limb lymph nodes (principal); C50.912 Malignant neoplasm of unspecified site of left female breast; C50.911 Malignant neoplasm of unspecified site of right female breast; Z80.3 Family history of malignant neoplasm of breast; K21.00 Gastro-esophageal reflux disease with esophagitis, without bleeding; E78.5 Hyperlipidemia, unspecified; E03.9 Hypothyroidism, unspecified; Z88.0 Allergy status to penicillin; Z88.2 Allergy status to sulfonamides; Z79.899 Other long term (current) drug therapy
CPT/HCPCS: 00752; 01610; J0131; J0690; J1100; J1644; J1885; J2001; J2405; J2704; J3010; J7121

== ENCOUNTER 2023-03-10 07:44 | Day surgery (SDC) | payer OTHER ==
[~2023-03-10] VITALS: Ht 165.1 cm; Wt 86.4 kg
--- NOTE | ~2023-03-10 | OR ---
[facility] [address], [place] [address] Draft DATE OF OPERATION: 03/10/2023 SURGEON: Mariajose Vogt MD PREOPERATIVE DIAGNOSIS: Bilateral breast cancer, status post bilateral mastectomy. POSTOPERATIVE DIAGNOSIS: Bilateral breast cancer, status post bilateral mastectomy. PROCEDURE: 1. Ultrasound guided entry to right internal jugular vein. 2. Placement of right internal jugular Port-A-Cath device. 3. Surgeon-directed fluoroscopy. ANESTHESIA: LMA, Mariajose Valle CRNA and local 0.25% Marcaine with epinephrine, 10 mL. INDICATIONS: This 67-year-old white woman has undergone ultimately a bilateral mastectomy for breast cancer. She is a patient of [facility] and more recently Dr. Brenda Martinez. She is admitted at this time to undergo placement of a Port-A-Cath device, anticipating chemotherapy. The risk of bleeding, infection, pneumothorax, failure of the device and other unforeseen complications was reviewed in detail with her. She understands and wished to proceed. FINDINGS: Good visualization of the right internal jugular vein was noted with the ultrasound device. Placement with ultrasound assistance of flexible J-wire into the right internal jugular vein was accomplished without problem. The port was implanted over the right pectoralis via the right internal jugular vein and has good function at the conclusion of the procedure and good positioning. A postprocedure chest x-ray is pending. DESCRIPTION OF PROCEDURE: The patient was brought into the operating room and given a general LMA type anesthetic. Preoperative antibiotic Ancef was given. The face was turned to the left. Preparation was undertaken on the neck and chest with a chlorhexidine solution and draped sterilely. Mild Trendelenburg position was maintained. Using the [employer] ultrasound device with sterile cover, the right neck was evaluated showing a generous right internal jugular vein and coarse carotid artery nearby. Under direct visualization, the right internal PATIENT NAME: AMANUEL GLEZ OPERATIVE REPORT DATE OF : 57 REPORT #: [id number] PHYSICIAN: MARIAJOSE VOGT MD PCP: HANNAH NORTH PA-C REPORT IS CONFIDENTIAL AND NOT TO BE RELEASED WITHOUT AUTHORIZATION [facility] [address], [place] [address] Draft jugular vein was accessed showing dark nonpulsatile blood. A flexible J-wire was passed down the needle. Ultrasound confirmed the wire to be in the appropriate position. A photograph was taken for documentation. Fluoroscopy was then used confirming the wire in the right heart system. Some withdrawal and manipulation of the wire was required as the wire appeared to enter into the azygos system initially. Once the wire well passed into the inferior vena cava, the table was placed into neutral position. A 10 mL of 0.25% Marcaine was injected transversely over the right pectoral area and a transverse incision was made with a #15 blade. Electrocautery was used for hemostasis. A pocket was developed over the right pectoralis muscle to accommodate a port device. The port was partially secured to the pectoralis fascia with 2-0 Vicryl suture. In the right neck, where wire was emanating from it, the site was incised with an #11 blade and dilated, and subsequently dilator and peel-away sheath introducer passed over the wire. The wire and the dilator were removed showing vigorous retrograde dark nonpulsatile bleeding. We previously inspected Groshong catheter, where the Bard port device was passed down the sheath and the peel-away sheath introducer removed, stabilizing the catheter gently with a DeBakey forceps. Flushing and aspiration of the catheter showed dark nonpulsatile blood. Under fluoroscopic control, the tip of the catheter was withdrawn to the superior vena cava. Flushing with some iodinated contrast allowed for good visualization of the position of the catheter. The catheter was then flushed with heparinized saline further. Using the tunneling device, the catheter was drawn to the port pocket over the pectoralis muscle. It was trimmed to the appropriate length and secured to the port device per supervisor ski production's instructions and secured to it with the enclosed collar device. The port was then secured more fully to the pectoralis fascia with Vicryl suture. Fluoroscopy was then undertaken with some small amount of contrast in the port device showing good position of the tip of the catheter in the superior vena cava and no kinks or other untoward findings of the catheter itself. The port was then flushed with heparinized saline. A port pocket was closed with interrupted 2-0 Vicryl and a running subcuticular 3-0 Vicryl. The puncture side of the right neck was closed with interrupted 3-0 Vicryl stitch. Steri-Strips were applied to each site after access and flushing with Saldana needle with heparinized saline, showing good withdrawal and easy flushing of solution. Acticoat dressing was applied over the pectoralis area and an Opsite over the neck area. The patient was ultimately extubated and taken to the recovery room in good condition, having suffered no complication. Sponge, needle, and instrument counts reported as correct x3. PATIENT NAME: AMANUEL GLEZ FATMATA OPERATIVE REPORT DATE OF : 57 REPORT #: [id number] PHYSICIAN: MARIAJOSE VOGT MD PCP: HANNAH NORTH PA-C REPORT IS CONFIDENTIAL AND NOT TO BE RELEASED WITHOUT AUTHORIZATION [address] [place] [address] Draft MD JANIE Zhang/FARNAZ /[id number] cc: MD Hannah Montano PA Copies: BRENDA MARTINEZ MD ~ PATIENT NAME: AMANUEL GLEZ OPERATIVE REPORT DATE OF : 57 REPORT #: [id number] PHYSICIAN: MARIAJOSE VOGT MD PCP: HANNAH NORTH PA-C REPORT IS CONFIDENTIAL AND NOT TO BE RELEASED WITHOUT AUTHORIZATION
[~2023-03-10 07:44] MED LIST changes: +DILAUDID2 MG PO; +ONDANSETRON ODT8 MG PO; +PERCOCET 10-321 EACH PO
[2023-03-10 08:26] VITALS: BP 123/71
--- NOTE | 2023-03-10 10:23 | NUR ---
03/10/23 1023 [place] Mcf[place]ane 1004- PT ARRIVED TO PACU ASLEEP WITH OPA IN PLACE AND 10L O2 PER MASK. PT NON RESPONSIVE TO STIMULI AT THIS TIME. CHEST XRAY ENTERED TO CONFIRM PORT A CATH PLACEMENT. STERI STRIPS TO RIGHT NECK HAVE SMALL AMOUNT OF BLOOD WITH ADAPTIC IN PLACE. DRESSING TO RIGHT UPPER CHEST CDI. BILATERAL SCD'S IN PLACE, ALL MONITORS APPLIED. LR INFUSING TO RIGHT WRIST.
[2023-03-10] MEDS ORDERED: HYDROMORPHONE HC4 MG PO (10:28)
[2023-03-10] MEDS ORDERED: IBUPROFEN600 MG PO (10:28)
[2023-03-10] MEDS ORDERED: ACETAMINOPHEN500 MG PO (10:28)
[2023-03-10 11:20] VITALS: BP 134/70
[2023-03-10 12:25] VITALS: BP 118/64
--- NOTE | 2023-03-10 12:36 | NUR ---
1120: PATIENT BACK IN DAY SURGERY ROOM FROM PACU. DENIES PAIN. PATIENT ASSISTED OOB AND TO BATHROOM BY LSW. VOID WITHOUT DIFFICULTY. GAIT STEADY BACK TO ROOM. RIGHT NECK STERI STRIPS WITH SCANT AMOUNT OF RED DRAINAGE. RIGHT CHEST DRESSING CLEAN, DRY AND INTACT. VS CHECKED. IV SALINE LOCKED. IV SITE WNL. SCDs ON. WARM BLANKET GIVEN TO PATIENT. CALL LIGHT WITHIN REACH. DAUGHTER AT BEDSIDE. 1155: CHECKED PATIENT. PATIENT SLEEPING. CALL LIGHT WITHIN REACH. 1225: PATIENT AWAKENED FOR VS. RATES PAIN 3/10 AT RIGHT CHEST SURGICAL SITE. DECLINES PAIN MEDICATION AT THIS TIME. TOLERATING WATER. DROWSY. SLEEPING WHEN NOT DISTURBED. CALL LIGHT WITHIN REACH.
[2023-03-10 13:35] VITALS: BP 110/59
--- NOTE | 2023-03-10 13:35 | NUR ---
LR 1337 PATIENT ALERT AND ORIENTED. DAUGHTER AT BEDSIDE. PATIENT DENIES BEING NAUSEATED. PATIENT PAIN 3/10 TOLERABLE AT THIS TIME. BREATHING EQUAL AND UNLABORED. OXYGEN SATURATIONS ABOVE 90%. PATIENT SURGICAL DRESSING ON CHEST CLEAN, DRY AND INTACT. NECK DRESSING SMALL AMOUNT OF RED DRAINAGE. PATIENT IVF INFUSING. SCD'S ON. PATIENT DRINKING WATER. GIVEN CRACKERS AT THIS TIME. CALL LIGHT WITHIN REACH NO FUTHER NEEDS.
--- NOTE | 2023-03-10 13:51 | NUR ---
OR STAFF ARRIVED JUST AFTER I ENTERED ROOM. PT CONSENTED TO SHORT PRAYER BEFORE LEAVING. STAFF GAVE INDICATED THEY HAD TIME. PRAYED FOR SUCCESSFUL PROCEDURE AND ONGOING HEALING.
--- NOTE | 2023-03-10 13:52 | NUR ---
PT AMBULATED TO THE RESTROOM AND BACK. PT REPORTS NO DIZZINESS, NAUSEA, OR PAIN. PT IS WANTING TO GO HOME. PT DRESSING HERSELF WITH HER DAUGHTER AT THE BEDSIDE.
--- NOTE | 2023-03-10 14:12 | NUR ---
INTO PT'S ROOM TO DO DC INSTRUCTIONS. DC INSTRUCTIONS PROVIDED TO PT AND PT'S DAUGHTER. ALL QUESTIONS ANSWERED. PT DOES NOT LIKE THAT THERE IS A SMALL AMOUNT OF BLOOD VISIBLE ON HER NECK. DR. VOGT NOTIFIED AND NEW ORDERS RECEIVED TO CHANGE THE DRESSING WITH A NEW STERI STRIP AND OPSITE.
--- NOTE | 2023-03-10 14:24 | NUR ---
STERILE DRESSING CHANGE COMPLETED. PT AND PT'S DAUGHTER ARE HAPPY WITH THE CHANGE. PT AMBULATED TO THE WHEELCHAIR AND TAKEN TO THE FRONT OF THE HOSPITAL TO MEET HER DAUGHTER.
--- NOTE | 2023-03-14 17:37 | NUR ---
03/14/23- CALLBACK TC PLACED. SEVERAL STERISTRIPS HAVE FALLEN OFF PER PT. QUESTIONS ABOUT REDRESSING INCISION. ENGD PT TO CONTACT SURGEON IF INCISION APPEARS TO SEPARATE. NO FURTHER CONCERNS VOICED BY PT AT THIS TIME
== END 2023-03-10 14:27 | disposition home or self-care (01) ==
LOC: DS 07:44
PROVIDERS: ATTEND Surgery
PROC: 02HV33Z Insertion of Infusion Device into Superior Vena Cava, Percutaneous Approach (ICD-10-PCS; 2023-03-10)
PROC: B518ZZA Fluoroscopy of Superior Vena Cava, Guidance (ICD-10-PCS; 2023-03-10)
PROC: 0JH60WZ Insertion of Totally Implantable Vascular Access Device into Chest Subcutaneous Tissue and Fascia, Open Approach (ICD-10-PCS; principal; 2023-03-10 09:30)
DX: C50.911 Malignant neoplasm of unspecified site of right female breast (principal); C50.912 Malignant neoplasm of unspecified site of left female breast; Z90.13 Acquired absence of bilateral breasts and nipples
CPT/HCPCS: 00532; 71045; 77001; C1788; J0131; J0690; J1100; J1644; J1790; J1885; J2250; J2405; J2704; J2765; J3010; J7121